=== PATIENT | female | born 2005 | race Caucasian/White ===

== ENCOUNTER 2023-06-13 11:38 | Emergency (ER) | payer MEDICAID, SELFPAY ==
[2023-06-13 11:43] VITALS: BP 110/63; PULSE 92; RESP 18; TEMP 36.9; O2SAT 100; BMI 16.6
--- NOTE | 2023-06-13 11:49 | ECG_ITS ---
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 Measurements Intervals [place] Rate: 75 P: 75 AL: 155 QRS: 88 QRSD: 84 T: 64 QT: 355 QTc: 398 Interpretive Statements SINUS RHYTHM No previous ECG available for comparison Electronically Signed On 06-13-2023 18:41:48 CDT by Bisi El M.D. [email or web address]
--- NOTE | 2023-06-13 12:44 | ED_ITS ---
HPI - Dizziness 2 General: Chief Complaint: Dizziness Stated Complaint: Dizzy , 13 weeks preg Time Seen by Provider: 06/13/23 12:35 Source: patient Mode of arrival: ambulatory Limitations: no limitations History of Present Illness: HPI Narrative: 17-year-old female is currently 11 to 12 weeks states she was at work this morning started to feel hot and nauseous and then felt like she is going to pass out states she had assented to some cool air she had some slight abdominal cramping she denies any vomiting denies any diarrhea she denies any vaginal bleeding states she feels improved currently blood pressure here is normal Associated symptoms: Denies chest pain, chills, headache(s), nausea or vomiting Review of Systems 2 Const: Denies: fever(s), chills, body aches or change in appetite ENMT: Denies: throat pain or dental pain Card: Reports: pre-syncope; Denies: chest pain Resp: Denies: dyspnea GI: Denies: abdominal pain, nausea, vomiting or diarrhea Musc: Denies: neck pain or back pain Skin/Breast: Denies: rash Neuro: Denies: headache(s) PFSH ED 2 PFSH: Medical History Undernourished Foreign body sensation in left ear canal Nausea and vomiting Chronic headache Hematuria Acute bacterial sinusitis Hypertension screen Medication management Dizziness Vitamin D deficiency Mild acid reflux Headache Post concussion syndrome Anxiety and depression Pharyngitis Encounter for Depo-Provera contraception Pharyngitis Foot injury Social History Smoking and tobacco/nicotine status: never used tobacco/nicotine Alcohol intake: never Substance/Drug Use: never Physical Exam 2 Const: COMMON NORMALS: no acute distress, patient oriented x3 and healthy appearing HENMT: COMMON NORMALS: normocephalic and atraumatic HEAD & SCALP: n ormocephalic and atraumatic Neck/C-Spine: COMMON NORMALS: full ROM and supple Chest: COMMONS NORMALS: normal inspection of the chest Resp: COMMON NORMALS: normal respiratory effort Cardio: COMMON NORMALS: regular rate, regular rhythm and No murmurs present (Cardio) RATE: regular rate RHYTHM: regular rhythm GI: COMMON NORMALS: Normal to inspection, nondistended, normoactive bowel sounds present, Soft to palpation, non-tender and no masses PALPATION: Yes Soft to palpation Extremity: COMMON NORMALS: normal to inspection and full ROM Neuro: COMMON NORMALS: patient oriented x3, moves all extremities and no focal motor deficits Psych: COMMON NORMALS: mental status grossly normal, Normal thought process present and cooperative THOUGHT PROCESS: Normal thought process present Skin: COMMON NORMALS: no rashes or lesions noted and no wounds GENERAL SKIN EXAM: no rashes or lesions noted Course 2 Vital Signs: Vital signs: Vital Signs Temperature 98.4 F 06/13/23 11:43 Pulse Rate 92 06/13/23 11:43 Respiratory Rate 16 06/13/23 13:47 Blood Pressure 110/63 06/13/23 11:43 Pulse Oximetry 100 06/13/23 11:43 Oxygen Delivery Me thod Room Air 06/13/23 11:43 MDM - Dizziness Medical Decision Making Patient presents here with near syncopal event she is did a bedside ultrasound showed IUP consistent dates blood work here is normal she feels improved here she is stable for discharge follow-up with PCP return if worsening. Medical Records I reviewed the patient's medical records. Lab Data I reviewed the patient's lab results. 06/13/23 13:24 06/13/23 13:24 Laboratory Results WBC 7.23 10^3/uL (4.5-13.0) 06/13/23 13:24 RBC 3.83 10^6/uL (3.85-5.65) L 06/13/23 13:24 Hgb 11.50 g/dL (12.4-14.8) L 06/13/23 13:24 Hct 35.3 % (36-47) L 06/13/23 13:24 MCV 92.2 fl (85-98) 06/13/23 13:24 MCH 30.0 pg (27-33) 06/13/23 13:24 MCHC 32.6 g/dL (30-55) 06/13/23 13:24 RDW 12.4 % (12.1-15.1) 06/13/23 13:24 Plt Count 194 10^3/cmm (157-399) 06/13/23 13:24 MPV 10.6 fL (7.4-10.4) H 06/13/23 13:24 Neut % (Auto) 78.5 % 06/13/23 13:24 Lymph % (Auto) 13.6 % 06/13/23 13:24 [place] % (Auto) 6.8 % 06/13/23 13:24 Eos % (Auto) 0.4 % 06/13/23 13:24 Baso % (Auto) 0.3 % 06/13/23 13:24 Neut # (Auto) 5.68 10^3/uL (1.8-8.0) 06/13/23 13:24 Lymph # (Auto) 1.0 10^3/uL (1.5-6.5) L 06/13/23 13:24 Gove # (Auto) 0.5 10^3/uL (0.2-0.9) 06/13/23 13:24 Eos # (Auto) 0.0 10^3/uL (0.0-0.8) 06/13/23 13:24 Baso # (Auto) 0.0 10^3/uL (0.0-0.1) 06/13/23 13:24 Nucleated RBC % (auto) 0 % 06/13/23 13:24 Nucleated RBCs # 0.0 /100WBC 06/13/23 13:24 Sodium 135 mmol/L (136-145) L 06/13/23 13:24 Potassium 3.8 mmol/L (3.5-5.1) 06/13/23 13:24 Chloride 102 mmol/L (98-107) 06/13/23 13:24 Carbon Dioxide 25 mmol/L (22-29) 06/13/23 13:24 Anion Gap 11.8 (5-19) 06/13/23 13:24 BUN 5 mg/dL (6-20) L 06/13/23 13:24 Creatinine 0.4 mg/dL (0.5-0.9) L 06/13/23 13:24 GFR Calculation 205.6 mL/min (90-130) H 06/13/23 13:24 Glucose 67 mg/dL (65-115) 06/13/23 13:24 Calculated Osmolality 276 mOsm/kg (285-295) L 06/13/23 13:24 Calcium 8.9 mg/dL (8.5-10.5) 06/13/23 13:24 Total Bilirubin 0.2 mg/dL (0.15-1.2) 06/13/23 13:24 AST 14 U/L (0-32) 06/13/23 13:24 ALT 12 U/L (0-33) 06/13/23 13:24 Alkaline Phosphatase 49 U/L (35-105) 06/13/23 13:24 Total Protein 6.7 g/dL (6.6-8.7) 06/13/23 13:24 Albumin 4.1 g/dL (3.5-5.2) 06/13/23 13:24 Globulin 2.6 g/dL (1.3-4.6) 06/13/23 13:24 All radiology interpretation(s) finalized by discharge EKG Data EKG 1: I personally reviewed and interpreted this EKG as follows: EKG interpretation date: 06/13/23 EKG interpretation time: 12:46 Interpretation: nsr hr [address] or t wave abnormalities qrs 84 qtc 384 Discharge Plan Discharge Patient Disposition: Home Clinical Impression: Near syncope Condition: Stable Prescriptions: No Action 28 mg iron- 800 mcg Tablet 1 tab PO DAILY Discharge Orders: Discharge ED (Routine); Ordered 06/13/23 Ordered By: Harrison Marquez Referrals: Venita Luna FNP [Primary Care Provider] - Discharge Diet: Advance as tolerated Discharge Activity: Resume usual activity Patient Instructions: Near Syncope (ED), at 11 to 14 Weeks (ED) Coding Level of Care Code ED Dragline Engineer for Tio Durand
[2023-06-13 13:35] LABS: Basophils % 0.3 %; Eosinophils % 0.4 %; Hematocrit 35.3 % (36-47); Lymphocytes % 13.6 %; Mean Corpuscular HGB Conc 32.6 g/dL (30-55); Mean Corpuscular Volume 92.2 fl (85-98); Mean Platelet Volume 10.6 fL (7.4-10.4); Monocytes # 0.5 10^3/uL (0.2-0.9); Monocytes % 6.8 %; Neutrophils # 5.68 10^3/uL (1.8-8.0); Neutrophils % 78.5 %; Nucleated Red Blood Cells % 0 %; Platelet Count 194 10^3/cmm (157-399); Red Blood Count 3.83 10^6/uL (3.85-5.65); Red Cell Distribution Width 12.4 % (12.1-15.1); White Blood Count 7.23 10^3/uL (4.5-13.0)
[2023-06-13 13:47] VITALS: RESP 16
[2023-06-13] MEDS: sodium chloride 0.9% 500 ML 999 ML IV (13:53)
[2023-06-13 13:59] LABS: Alanine Aminotransferase 12 U/L (0-33); Albumin Level 4.1 g/dL (3.5-5.2); Alkaline Phosphatase 49 U/L (35-105); Aspartate Amino Transferase 14 U/L (0-32); Blood Urea Nitrogen 5 mg/dL (6-20); Calcium 8.9 mg/dL (8.5-10.5); Carbon Dioxide 25 mmol/L (22-29); Chloride 102 mmol/L (98-107); Creatinine Clr Calc Pharmacy 161.9852; Globulin 2.6 g/dL (1.3-4.6); Glomerular Filtration Rate 205.6 mL/min (90-130); Glucose 67 mg/dL (65-115); Osmolality Calculated 276 mOsm/kg (285-295); Sodium 135 mmol/L (136-145); Total Bilirubin 0.2 mg/dL (0.15-1.2); Total Protein 6.7 g/dL (6.6-8.7)
[2023-06-13 14:06] LABS: Anion Gap 11.8 (5-19); Potassium 3.8 mmol/L (3.5-5.1)
[2023-06-13 14:46] VITALS: RESP 16
== END 2023-06-13 14:47 | disposition home or self-care (01) ==
PROVIDERS: Emergency Provider Emergency Medicine; PCP Nurse Practitioner
DX: O26.891 Other specified pregnancy related conditions, first trimester (principal); R55 Syncope and collapse; Z3A.12 12 weeks gestation of pregnancy
CPT/HCPCS: 36415; 80053; 85025; 93005; 96360; 99284; J7040